=== PATIENT | male | born 1970 | race Caucasian/White ===

== ENCOUNTER 2016-06-10 05:41 | Inpatient (IN) | payer SELFPAY ==
[~2016-06-10] VITALS: Ht 160 cm; Wt 70.4 kg
[2016-06-10] MEDS ORDERED: DIAZEPAM 5 MG/ML 2 ML SYRINGE IVP ONE ×2 (06:15→07:30)
[2016-06-10 06:21] LABS: BASOPHILS # (AUTO) 0.06 K/uL (0.00-0.20); BASOPHILS % (AUTO) 0.5 % (0.0-2.0); EOSINOPHILS # (AUTO) 0.03 K/uL (0.00-0.70); EOSINOPHILS % (AUTO) 0.23 % (1.0-6.0); HEMATOCRIT 48.3 % (41-53); HEMOGLOBIN 16.4 g/dL (13.5-17.5); LYMPHOCYTES # (AUTO) 2.2 K/uL (1.0-4.8); LYMPHOCYTES % (AUTO) 19.9 % (22.0-44.0); MEAN CORPUSCULAR HEMOGLOBIN 33.2 pg (26.0-34.0); MEAN CORPUSCULAR VOLUME 98 fL (80-100); MONOCYTES # (AUTO) 0.7 K/uL (0.1-1.0); MONOCYTES % (AUTO) 6.4 % (2.0-9.0); NEUTROPHILS # (AUTO) 7.9 K/uL (1.8-7.7); NEUTROPHILS % (AUTO) 72.9 % (40.0-70.0); PLATELET COUNT (AUTO) 287 K/uL (150-450); RED BLOOD CELL COUNT(AUTO) 4.95 MIL/uL (4.50-5.90); RED CELL DISTRIBUTION WIDTH 12.1 % (11.5-14.5); WHITE BLOOD COUNT (AUTO) 10.9 K/uL (4.5-11.0)
[2016-06-10 06:31] LABS: ANION GAP 13 mmol/L (8-16); CARBON DIOXIDE 28 mmol/L (22-29); CHLORIDE 99 mmol/L (98-107); CREATININE 1.01 mg/dL (0.60-1.30); GLOMERULAR FILTR. RATE CALC > 60 mL/min (>60); POTASSIUM 3.7 mmol/L (3.5-5.1); SODIUM SERUM 140 mmol/L (136-145); UREA NITROGEN, BLOOD 6 mg/dL (7-18)
[2016-06-10 06:37] LABS: ALANINE AMINOTRANSFERASE 66 U/L (12-78); ALBUMIN 3.8 g/dL (3.4-5.0); ASPARTATE AMINOTRANSFERASE 86 U/L (15-37); BILIRUBIN,TOTAL 0.9 mg/dL (0.1-1.0); TOTAL PROTEIN, SERUM 7.9 g/dL (6.4-8.2)
[2016-06-10] MEDS ORDERED: SODIUM CHLORIDE 0.9% 1,000 ML IV ONE (07:30)
[2016-06-10] MEDS ORDERED: ACETAMINOPHEN 325 MG TABLET PO PRN ×2 (08:15→11:00)
[2016-06-10] MEDS ORDERED: ONDANSETRON HCL 4 MG/2 ML VIAL IVP PRN (08:15)
[2016-06-10] MEDS ORDERED: DIAZEPAM 5 MG/ML 2 ML SYRINGE IVP PRN (08:15)
[2016-06-10 10:17] VITALS: BP 187/113
[2016-06-10] MEDS ORDERED: LORazepam 2 MG/ML VIAL IVP PRN (11:00)
[2016-06-10] MEDS ORDERED: POTASSIUM CHL 10 MEQ/WATER 50 ML IV PRN (11:00)
[2016-06-10] MEDS ORDERED: MAGNESIUM SULFATE 4 GM/WATER 100 ML IV PRN (11:00)
[2016-06-10] MEDS ORDERED: POTASSIUM CHLORIDE 20 MEQ ER TABLET PO PRN (11:00)
[2016-06-10] MEDS ORDERED: MAGNESIUM HYDROXIDE SUSPENSION 30 ML UDCUP PO PRN (11:00)
[2016-06-10] MEDS ORDERED: MAGNESIUM OXIDE 400 MG TABLET PO PRN (11:00)
[2016-06-10] MEDS ORDERED: MAGNESIUM SULFATE 2 GM in DEXTROSE 5%-WATER 50 ML IV PRN (11:00)
[2016-06-10] MEDS: SODIUM CHLORIDE 0.9% 1,000 ML IV SCH ×2 (12:30→20:16)
[2016-06-10] MEDS: MULTIVITAMINS WITH MINERALS, THERAPEUTIC TABLET PO SCH (12:30)
[2016-06-10] MEDS: AmLODIPine BESYLATE 5 MG TABLET PO SCH (12:30)
[2016-06-10] MEDS: PANTOPRAZOLE SODIUM 40 MG/VIAL IVP SCH (12:30)
[2016-06-10] MEDS: ChlordiazePOXIDE HCL 25 MG CAPSULE PO SCH ×2 (12:30→20:16)
[2016-06-10] MEDS: CloNIDine HCL 0.1 MG TABLET PO PRN ×2 (14:42→20:16)
[2016-06-10 15:02] VITALS: BP 181/108
[2016-06-10 17:23] VITALS: BP 161/103
[2016-06-10 19:38] VITALS: BP 162/101
[2016-06-10] MEDS: DOCUSATE SODIUM 100 MG CAPSULE PO SCH (20:16)
[2016-06-10 23:28] VITALS: BP 130/85
[2016-06-11 05:04] VITALS: BP 134/87
[2016-06-11] MEDS: SODIUM CHLORIDE 0.9% 1,000 ML IV SCH ×2 (06:01→15:49)
[2016-06-11] MEDS ORDERED: 0.9% SODIUM CHLORIDE 10 ML SYRINGE IVP PRN (06:45)
[2016-06-11 07:35] VITALS: BP 145/93
[2016-06-11] MEDS: PANTOPRAZOLE SODIUM 40 MG/VIAL IVP SCH (08:16)
[2016-06-11] MEDS: ChlordiazePOXIDE HCL 25 MG CAPSULE PO SCH (08:16)
[2016-06-11] MEDS: MULTIVITAMINS WITH MINERALS, THERAPEUTIC TABLET PO SCH (08:16)
[2016-06-11] MEDS: AmLODIPine BESYLATE 5 MG TABLET PO SCH (08:17)
[2016-06-11] MEDS: DOCUSATE SODIUM 100 MG CAPSULE PO SCH (08:22)
[2016-06-11 11:40] VITALS: BP 158/94
[2016-06-11 15:47] VITALS: BP 166/99
[2016-06-11] MEDS: CloNIDine HCL 0.1 MG TABLET PO PRN (16:48)
[2016-06-11] MEDS ORDERED: CLON.1 PO (17:21)
[2016-06-11] MEDS ORDERED: THIA100 PO (17:22)
[2016-06-11] MEDS ORDERED: FOLI1 PO (17:22)
[2016-06-11] MEDS ORDERED: LIB25 PO (17:28)
[2016-06-11] MEDS ORDERED: MULT-1203 PO (17:29)
== END 2016-06-11 19:05 | disposition home or self-care (01) | DRG 897 ==
LOC: EMS 05:44 → 5S 09:32
PROVIDERS: ADMIT Internal Medicine; ATTEND Internal Medicine
DX: F10.239 Alcohol dependence with withdrawal, unspecified (principal); R00.0 Tachycardia, unspecified; Y90.9 Presence of alcohol in blood, level not specified
CPT/HCPCS: 83735; 96374; 96375; 99285; C9113; J7030

== ENCOUNTER 2016-08-09 20:17 | Emergency (ER) | payer MEDICAID ==
[~2016-08-09] VITALS: Ht 154.9 cm; Wt 68.2 kg
[~2016-08-09 20:17] MED LIST: CLON.1 PO; FOLI1 PO; LIB25 PO; MULT-1203 PO; THIA100 PO
[2016-08-09 21:13] VITALS: BP 152/97
[2016-08-09] MEDS ORDERED: CloNIDine HCL 0.1 MG TABLET PO ONE (21:15)
== END 2016-08-09 21:35 | disposition home or self-care (01) ==
LOC: EMS 20:18
DX: I10 Essential (primary) hypertension (principal); F10.10 Alcohol abuse, uncomplicated; Z91.14 Patient's other noncompliance with medication regimen
CPT/HCPCS: 99283

== ENCOUNTER 2016-09-10 20:07 | Emergency (ER) | payer MEDICAID ==
[~2016-09-10] VITALS: Ht 160 cm; Wt 68.0 kg
[2016-09-10] MEDS ORDERED: SODIUM CHLORIDE 0.9% 1,000 ML IV ONE ×2 (20:45→21:30)
[2016-09-10] MEDS ORDERED: CloNIDine HCL 0.2 MG TABLET PO ONE (21:15)
[2016-09-10 21:26] LABS: BASOPHILS % (AUTO) 0.2 % (0.0-2.0); EOSINOPHILS % (AUTO) 0.2 % (1.0-6.0); HEMATOCRIT 45.7 % (41-53); HEMOGLOBIN 15.9 g/dL (13.5-17.5); LYMPHOCYTES # (AUTO) 2.6 K/uL (1.0-4.8); LYMPHOCYTES % (AUTO) 24.7 % (22.0-44.0); MEAN CORPUSCULAR HEMOGLOBIN 32.2 pg (26.0-34.0); MEAN CORPUSCULAR HGB CONC 34.9 G/dL (31.0-37.0); MEAN CORPUSCULAR VOLUME 92 fL (80-100); MONOCYTES # (AUTO) 0.6 K/uL (0.1-1.0); MONOCYTES % (AUTO) 5.9 % (2.0-9.0); NEUTROPHILS # (AUTO) 7.3 K/uL (1.8-7.7); PLATELET COUNT (AUTO) 316 K/uL (150-450); RED BLOOD CELL COUNT(AUTO) 4.96 MIL/uL (4.50-5.90); WHITE BLOOD COUNT (AUTO) 10.5 K/uL (4.5-11.0)
[2016-09-10 21:35] LABS: ANION GAP 13 mmol/L (8-16); CALCIUM, TOTAL 9.8 mg/dL (8.8-10.5); CARBON DIOXIDE 26 mmol/L (22-29); CHLORIDE 100 mmol/L (98-107); GLOMERULAR FILTR. RATE CALC > 60 mL/min (>60); SODIUM SERUM 139 mmol/L (136-145); UREA NITROGEN, BLOOD 6 mg/dL (7-18)
[2016-09-10 21:41] LABS: ALANINE AMINOTRANSFERASE 26 U/L (12-78); ALBUMIN 4.5 g/dL (3.4-5.0); ASPARTATE AMINOTRANSFERASE 22 U/L (15-37); BILIRUBIN,TOTAL 0.6 mg/dL (0.1-1.0); TOTAL PROTEIN, SERUM 8.4 g/dL (6.4-8.2)
[2016-09-10] MEDS ORDERED: POTASSIUM CHLORIDE 20 MEQ ER TABLET PO ONE (21:45)
[2016-09-10 22:38] LABS: APPEARANCE,URINE CLEAR (CLEAR); GLUCOSE, URINE (UA) NEGATIVE (NEGATIVE); KETONES,URINE NEGATIVE (NEGATIVE); LEUKOCYTE ESTERASE ,URINE NEGATIVE (NEGATIVE); OCCULT BLOOD,URINE NEGATIVE (NEGATIVE); PROTEIN,URINE NEGATIVE (NEGATIVE)
[2016-09-10 22:47] LABS: RBC,URINE None Seen /HPF (0-2); WBC,URINE None Seen /HPF (0-5)
[2016-09-10 23:29] VITALS: BP 181/83
== END 2016-09-10 23:35 | disposition home or self-care (01) ==
LOC: EMS 20:09
DX: M25.512 Pain in left shoulder (principal); E86.0 Dehydration; I10 Essential (primary) hypertension; R07.9 Chest pain, unspecified
CPT/HCPCS: 36415; 71010; 73030; 80053; 80307; 81001; 83690; 84484; 85025; 85379; 93005; 96360; 99285; G0480; J7030; 96361

== ENCOUNTER 2016-10-24 09:53 | Emergency (ER) | payer MEDICAID ==
[~2016-10-24] VITALS: Ht 160 cm; Wt 72.7 kg
[~2016-10-24 09:53] MED LIST changes: +CLON-570 PO; -CLON.1 PO; -FOLI1 PO; -LIB25 PO; -MULT-1203 PO; -THIA100 PO
[2016-10-24] MEDS ORDERED: CloNIDine HCL 0.1 MG TABLET PO ONE (12:15)
[2016-10-24 13:37] VITALS: BP 144/90
== END 2016-10-24 13:57 | disposition home or self-care (01) ==
LOC: EMS 09:55
DX: Z76.0 Encounter for issue of repeat prescription (principal); I10 Essential (primary) hypertension
CPT/HCPCS: 93005; 99283

== ENCOUNTER 2022-07-13 13:48 | Inpatient (IN) | payer MEDICAID ==
[~2022-07-13] VITALS: Ht 167.6 cm; Wt 61.0 kg
[~2022-07-13 13:48] MED LIST changes: +AMLO10TA55 PO; -CLON-570 PO; +CLON0.1T2 PO; +METO25 PO
[2022-07-13] MEDS ORDERED: SODIUM CHLORIDE 0.9% 1,000 ML IV ONE (14:15)
[2022-07-13] MEDS ORDERED: METOCLOPRAMIDE HCL 5 MG/ML 2 ML VIAL IVP ONE (14:15)
[2022-07-13 14:33] LABS: EOSINOPHILS % (AUTO) 0 % (1.0-6.0); HEMATOCRIT 44.8 % (41-53); HEMOGLOBIN 15.6 g/dL (13.5-17.5); LYMPHOCYTES # (AUTO) 0.4 K/uL (1.0-4.8); LYMPHOCYTES % (AUTO) 1.5 % (22.0-44.0); MEAN CORPUSCULAR HEMOGLOBIN 34.5 pg (26.0-34.0); MEAN CORPUSCULAR HGB CONC 34.8 G/dL (31.0-37.0); MEAN CORPUSCULAR VOLUME 99 fL (80-100); MONOCYTES # (AUTO) 1.1 K/uL (0.1-1.0); PLATELET COUNT (AUTO) 278 K/uL (150-450); RED BLOOD CELL COUNT(AUTO) 4.52 MIL/uL (4.50-5.90); RED CELL DISTRIBUTION WIDTH 12.5 % (11.5-14.5)
[2022-07-13 14:35] LABS: APPEARANCE,URINE CLEAR (CLEAR); BILIRUBIN,URINE NEGATIVE (NEGATIVE); GLUCOSE, URINE (UA) NEGATIVE (NEGATIVE); KETONES,URINE 40-60 mg/dL (NEGATIVE); LEUKOCYTE ESTERASE ,URINE NEGATIVE (NEGATIVE); NITRATE,URINE NEGATIVE (NEGATIVE); OCCULT BLOOD,URINE LARGE (NEGATIVE); PH,URINE 5.5 (5.0-8.0); PROTEIN,URINE 30-70 mg/dL (NEGATIVE); SPECIFIC GRAVITIY, URINE 1.015 (1.003-1.030); UROBILINOGEN,URINE <=1.0 mg/dL (<=1.0)
[2022-07-13 14:37] LABS: NEUTROPHILS % (AUTO) 94.5 % (40.0-70.0)
[2022-07-13 14:41] LABS: GLUCOSE,POINT OF CARE 114 MG/DL (70-110)
[2022-07-13 14:43] LABS: AMPHET/METH SCREEN,URINE NEGATIVE (NEGATIVE); BACTERIA,URINE Rare /HPF (None Seen); BARBITURATE SCREEN, URINE NEGATIVE (NEGATIVE); BENZODIAZEPINES SCREEN,URINE NEGATIVE (NEGATIVE); CANNABINOID SCREEN,URINE NEGATIVE (NEGATIVE); COCAINE SCREEN,URINE POSITIVE (NEGATIVE); METHADONE SCREEN, URINE NEGATIVE (NEGATIVE); OPIATE SCREEN,URINE NEGATIVE (NEGATIVE); PHENCYCLIDINE SCREEN,URINE NEGATIVE (NEGATIVE); SQUAMOUS EPITHELIAL CELL,UR Few /LPF (None Seen); WBC,URINE 0-2 /HPF (0-5)
[2022-07-13 14:44] LABS: CALCIUM, TOTAL 9.2 mg/dL (8.8-10.5); CREATININE 1.36 mg/dL (0.60-1.30); POTASSIUM 3.2 mmol/L (3.5-5.1)
[2022-07-13 14:50] LABS: ALBUMIN 4.3 g/dL (3.4-5.0); BILIRUBIN,TOTAL 1.3 mg/dL (0.1-1.0); TOTAL PROTEIN, SERUM 8.5 g/dL (6.4-8.2)
[2022-07-13 15:18] LABS: INR 0.9 (0.9-1.1); PROTHROMBIN TIME 9.8 SEC (9.4-11.6)
[2022-07-13 15:27] LABS: LACTIC ACID 2.5 mmol/L (0.4-2.0)
[2022-07-13] MEDS ORDERED: SODIUM CHLORIDE 0.9% 2,050 ML IV ONE (15:45)
[2022-07-13] MEDS ORDERED: PIPERACILLIN/TAZO 3.375 GM/D5W 50 ML IV ONE (15:45)
[2022-07-13 16:08] LABS: AMMONIA < 10 umol/L (11-32)
[2022-07-13 16:37] LABS: PROTHROMBIN TIME 10.2 SEC (9.4-11.6)
[2022-07-13] MEDS ORDERED: HYDROCODONE/ACETAMINOPHEN 5-325 MG TABLET PO PRN (20:15)
[2022-07-13] MEDS ORDERED: ONDANSETRON HCL 4 MG/2 ML VIAL IVP PRN (20:15)
[2022-07-13] MEDS ORDERED: ACETAMINOPHEN 325 MG TABLET PO PRN (20:15)
[2022-07-13] MEDS ORDERED: MAGNESIUM HYDROXIDE SUSPENSION 30 ML UDCUP PO PRN (20:15)
[2022-07-13] MEDS ORDERED: ZOLPIDEM TARTRATE 5 MG TABLET PO PRN (20:15)
[2022-07-13] MEDS ORDERED: MAGNESIUM SULFATE 2 GM, MVI, ADULT NO.1 WITH VIT K 10 ML, THIAMINE 100 MG, FOLIC ACID 1... IV ONE ×5 (20:15)
[2022-07-13] MEDS ORDERED: BISACODYL 10 MG RECTAL RECTAL SUPPOSITORY PR PRN (20:15)
[2022-07-13] MEDS ORDERED: MORPHINE SULFATE 2 MG/ML SYRINGE IVP PRN (20:15)
[2022-07-13 21:00] VITALS: BP 157/101
[2022-07-13] MEDS ORDERED: SODIUM CHLORIDE 0.9% 250 ML IV ONE (21:40)
[2022-07-13] MEDS: DOCUSATE SODIUM 100 MG CAPSULE PO SCH (21:41)
[2022-07-13] MEDS: PIPERACILLIN/TAZO 3.375 GM/D5W 50 ML IV SCH (21:42)
[2022-07-13] MEDS: HydrALAZINE HCL 20 MG/ML VIAL IVP PRN (21:44)
[2022-07-14] VITALS (7 sets, daily range): BP systolic 129–160; BP diastolic 35–97
[2022-07-14] MEDS: LORazepam 2 MG/ML VIAL IM PRN (02:46)
[2022-07-14] MEDS: PIPERACILLIN/TAZO 3.375 GM/D5W 50 ML IV SCH ×4 (04:01→21:14)
[2022-07-14 05:37] LABS: BASOPHILS % (AUTO) 0.2 % (0.0-2.0); EOSINOPHILS % (AUTO) 0 % (1.0-6.0); HEMATOCRIT 39.3 % (41-53); HEMOGLOBIN 13.6 g/dL (13.5-17.5); LYMPHOCYTES # (AUTO) 0.9 K/uL (1.0-4.8); LYMPHOCYTES % (AUTO) 5.5 % (22.0-44.0); MEAN CORPUSCULAR HEMOGLOBIN 34.4 pg (26.0-34.0); MEAN CORPUSCULAR HGB CONC 34.7 G/dL (31.0-37.0); MEAN CORPUSCULAR VOLUME 99 fL (80-100); MONOCYTES # (AUTO) 0.9 K/uL (0.1-1.0); MONOCYTES % (AUTO) 5.5 % (2.0-9.0); NEUTROPHILS # (AUTO) 14.7 K/uL (1.8-7.7); PLATELET COUNT (AUTO) 239 K/uL (150-450); RED BLOOD CELL COUNT(AUTO) 3.96 MIL/uL (4.50-5.90); RED CELL DISTRIBUTION WIDTH 12.5 % (11.5-14.5)
[2022-07-14 05:44] LABS: ANION GAP 11 mmol/L (8-16); CALCIUM, TOTAL 8.5 mg/dL (8.8-10.5); CARBON DIOXIDE 27 mmol/L (22-29); CHLORIDE 101 mmol/L (98-107); CREATININE 0.81 mg/dL (0.60-1.30); GLOMERULAR FILTR. RATE CALC > 60 mL/min (>60); GLUCOSE,RANDOM 107 mg/dL (70-110); SODIUM SERUM 139 mmol/L (136-145)
[2022-07-14 05:49] LABS: NEUTROPHILS % (AUTO) 88.8 % (40.0-70.0)
[2022-07-14 05:51] LABS: POTASSIUM 2.8 mmol/L (3.5-5.1)
[2022-07-14] MEDS: POTASSIUM CHL 10 MEQ/WATER 50 ML IV PRN ×4 (06:36→10:55)
[2022-07-14] MEDS: HydrALAZINE HCL 20 MG/ML VIAL IVP PRN (07:48)
[2022-07-14] MEDS: PANTOPRAZOLE SODIUM 40 MG DR TABLET PO SCH (10:02)
[2022-07-14] MEDS: DOCUSATE SODIUM 100 MG CAPSULE PO SCH ×2 (10:02→20:15)
[2022-07-14] MEDS: AmLODIPine BESYLATE 10 MG TABLET PO SCH (13:48)
[2022-07-14] MEDS: POTASSIUM CHLORIDE 20 MEQ ER TABLET PO PRN ×2 (15:57→20:44)
[2022-07-14] MEDS: METOPROLOL TARTRATE 25 MG TABLET PO SCH (20:16)
[2022-07-14] MEDS ORDERED: SODIUM CHLORIDE 0.9% 500 ML IV ONE (20:57)
[2022-07-15] VITALS (7 sets, daily range): BP systolic 114–160; BP diastolic 89–109
[2022-07-15] MEDS: PIPERACILLIN/TAZO 3.375 GM/D5W 50 ML IV SCH ×4 (03:27→21:35)
[2022-07-15 07:31] LABS: BASOPHILS % (AUTO) 0.3 % (0.0-2.0); EOSINOPHILS % (AUTO) 0 % (1.0-6.0); HEMOGLOBIN 14.3 g/dL (13.5-17.5); LYMPHOCYTES # (AUTO) 1.4 K/uL (1.0-4.8); LYMPHOCYTES % (AUTO) 13.6 % (22.0-44.0); MEAN CORPUSCULAR HEMOGLOBIN 34.8 pg (26.0-34.0); MEAN CORPUSCULAR VOLUME 100 fL (80-100); MONOCYTES # (AUTO) 0.6 K/uL (0.1-1.0); MONOCYTES % (AUTO) 6.2 % (2.0-9.0); NEUTROPHILS # (AUTO) 8.3 K/uL (1.8-7.7); NEUTROPHILS % (AUTO) 79.9 % (40.0-70.0); PLATELET COUNT (AUTO) 270 K/uL (150-450); RED BLOOD CELL COUNT(AUTO) 4.12 MIL/uL (4.50-5.90); RED CELL DISTRIBUTION WIDTH 12.5 % (11.5-14.5)
[2022-07-15 07:48] LABS: ANION GAP 9 mmol/L (8-16); CALCIUM, TOTAL 8.9 mg/dL (8.8-10.5); CARBON DIOXIDE 27 mmol/L (22-29); CHLORIDE 101 mmol/L (98-107); CREATININE 0.76 mg/dL (0.60-1.30); GLOMERULAR FILTR. RATE CALC > 60 mL/min (>60); GLUCOSE,RANDOM 125 mg/dL (70-110); POTASSIUM 3.5 mmol/L (3.5-5.1); SODIUM SERUM 137 mmol/L (136-145)
[2022-07-15] MEDS: METOPROLOL TARTRATE 25 MG TABLET PO SCH ×2 (08:16→21:34)
[2022-07-15] MEDS: DOCUSATE SODIUM 100 MG CAPSULE PO SCH ×2 (08:16→21:33)
[2022-07-15] MEDS: PANTOPRAZOLE SODIUM 40 MG DR TABLET PO SCH (08:16)
[2022-07-15] MEDS: AmLODIPine BESYLATE 10 MG TABLET PO SCH (08:16)
[2022-07-15] MEDS: POTASSIUM CHLORIDE 20 MEQ ER TABLET PO PRN ×2 (08:17→13:56)
[2022-07-15] MEDS ORDERED: AmLODIPine BESYLATE 10 MG TABLET PO SCH (09:00)
[2022-07-15] MEDS: MULTIVITAMINS WITH MINERALS, THERAPEUTIC TABLET PO SCH (11:05)
[2022-07-16] VITALS (7 sets, daily range): BP systolic 121–149; BP diastolic 80–108
[2022-07-16] MEDS: LORazepam 2 MG/ML VIAL IM PRN (03:48)
[2022-07-16] MEDS: PIPERACILLIN/TAZO 3.375 GM/D5W 50 ML IV SCH ×4 (03:52→21:31)
[2022-07-16] MEDS ORDERED: HALOPERIDOL LACTATE 5 MG/ML VIAL IM SCH (04:15)
[2022-07-16] MEDS ORDERED: DiphenhydrAMINE HCL 50 MG/ML VIAL IM ONE (04:15)
[2022-07-16] MEDS ORDERED: LORazepam 2 MG/ML VIAL IM ONE (04:15)
[2022-07-16] MEDS ORDERED: HALOPERIDOL LACTATE 5 MG/ML VIAL IM ONE (04:30)
[2022-07-16] MEDS: METOPROLOL TARTRATE 25 MG TABLET PO SCH ×2 (10:20→20:58)
[2022-07-16] MEDS: AmLODIPine BESYLATE 10 MG TABLET PO SCH (10:20)
[2022-07-16] MEDS: MULTIVITAMINS WITH MINERALS, THERAPEUTIC TABLET PO SCH (10:20)
[2022-07-16] MEDS: PANTOPRAZOLE SODIUM 40 MG DR TABLET PO SCH (10:20)
[2022-07-16] MEDS: DOCUSATE SODIUM 100 MG CAPSULE PO SCH ×2 (10:20→20:58)
[2022-07-16] MEDS ORDERED: LORazepam 2 MG/ML VIAL IVP PRN (10:30)
[2022-07-16] MEDS: SODIUM CHLORIDE 0.9% 1,000 ML IV SCH ×2 (11:40→21:32)
[2022-07-16 11:50] LABS: MAGNESIUM 2.2 mg/dL (1.80-2.40)
[2022-07-16 13:50] LABS: BASOPHILS % (AUTO) 0.4 % (0.0-2.0); EOSINOPHILS % (AUTO) 0.2 % (1.0-6.0); HEMATOCRIT 39.4 % (41-53); HEMOGLOBIN 13.7 g/dL (13.5-17.5); LYMPHOCYTES # (AUTO) 1.1 K/uL (1.0-4.8); MEAN CORPUSCULAR HEMOGLOBIN 34.7 pg (26.0-34.0); MEAN CORPUSCULAR HGB CONC 34.6 G/dL (31.0-37.0); MEAN CORPUSCULAR VOLUME 100 fL (80-100); MONOCYTES # (AUTO) 0.7 K/uL (0.1-1.0); MONOCYTES % (AUTO) 9.8 % (2.0-9.0); NEUTROPHILS # (AUTO) 5.6 K/uL (1.8-7.7); NEUTROPHILS % (AUTO) 74.6 % (40.0-70.0); PLATELET COUNT (AUTO) 282 K/uL (150-450); RED BLOOD CELL COUNT(AUTO) 3.94 MIL/uL (4.50-5.90); RED CELL DISTRIBUTION WIDTH 12.6 % (11.5-14.5)
[2022-07-16 14:06] LABS: ANION GAP 8 mmol/L (8-16); CALCIUM, TOTAL 9.1 mg/dL (8.8-10.5); CARBON DIOXIDE 28 mmol/L (22-29); CHLORIDE 101 mmol/L (98-107); CREATININE 0.87 mg/dL (0.60-1.30); GLOMERULAR FILTR. RATE CALC > 60 mL/min (>60); GLUCOSE,RANDOM 77 mg/dL (70-110); POTASSIUM 3.9 mmol/L (3.5-5.1); SODIUM SERUM 137 mmol/L (136-145)
[2022-07-17 01:09] VITALS: BP 143/95
[2022-07-17] MEDS: PIPERACILLIN/TAZO 3.375 GM/D5W 50 ML IV SCH ×4 (05:44→21:07)
[2022-07-17 05:48] VITALS: BP 145/93
[2022-07-17 07:14] LABS: ANION GAP 6 mmol/L (8-16); CALCIUM, TOTAL 8.8 mg/dL (8.8-10.5); CARBON DIOXIDE 27 mmol/L (22-29); CHLORIDE 103 mmol/L (98-107); GLOMERULAR FILTR. RATE CALC > 60 mL/min (>60); GLUCOSE,RANDOM 98 mg/dL (70-110); POTASSIUM 4.3 mmol/L (3.5-5.1); SODIUM SERUM 136 mmol/L (136-145)
[2022-07-17 08:44] VITALS: BP 156/98
[2022-07-17] MEDS: SODIUM CHLORIDE 0.9% 1,000 ML IV SCH (09:24)
[2022-07-17] MEDS: DOCUSATE SODIUM 100 MG CAPSULE PO SCH ×2 (09:25→21:06)
[2022-07-17] MEDS: MULTIVITAMINS WITH MINERALS, THERAPEUTIC TABLET PO SCH (09:27)
[2022-07-17] MEDS: METOPROLOL TARTRATE 25 MG TABLET PO SCH ×2 (09:27→21:06)
[2022-07-17] MEDS: AmLODIPine BESYLATE 10 MG TABLET PO SCH (09:27)
[2022-07-17] MEDS: PANTOPRAZOLE SODIUM 40 MG DR TABLET PO SCH (09:27)
[2022-07-17 11:40] VITALS: BP 120/73
[2022-07-17 15:33] VITALS: BP 139/75
[2022-07-17 19:58] VITALS: BP 146/85
[2022-07-18 00:04] VITALS: BP 150/71
[2022-07-18 04:27] VITALS: BP 137/79
[2022-07-18] MEDS: PIPERACILLIN/TAZO 3.375 GM/D5W 50 ML IV SCH (05:28)
[2022-07-18 08:11] VITALS: BP 155/90
[2022-07-18] MEDS: METOPROLOL TARTRATE 25 MG TABLET PO SCH (09:03)
[2022-07-18] MEDS: DOCUSATE SODIUM 100 MG CAPSULE PO SCH (09:04)
[2022-07-18] MEDS: PANTOPRAZOLE SODIUM 40 MG DR TABLET PO SCH (09:04)
[2022-07-18] MEDS: AmLODIPine BESYLATE 10 MG TABLET PO SCH (09:04)
[2022-07-18] MEDS: MULTIVITAMINS WITH MINERALS, THERAPEUTIC TABLET PO SCH (09:05)
[2022-07-18] MEDS: SODIUM CHLORIDE 0.9% 1,000 ML IV SCH ×2 (09:08→09:09)
== END 2022-07-18 10:40 | disposition left against medical advice (07) | DRG 720 ==
LOC: EMS 13:52 → ICU 18:57 → 5S 07-14 18:36
PROVIDERS: ADMIT Internal Medicine; ATTEND Internal Medicine
DX: A41.9 Sepsis, unspecified organism (principal); I61.8 Other nontraumatic intracerebral hemorrhage; J69.0 Pneumonitis due to inhalation of food and vomit; G92.9 Unspecified toxic encephalopathy; N17.9 Acute kidney failure, unspecified; E87.1 Hypo-osmolality and hyponatremia; E87.6 Hypokalemia; S00.83XA Contusion of other part of head, initial encounter; F10.20 Alcohol dependence, uncomplicated; I10 Essential (primary) hypertension; Z53.21 Procedure and treatment not carried out due to patient leaving prior to being seen by health care provider; M62.82 Rhabdomyolysis; F14.10 Cocaine abuse, uncomplicated; R79.89 Other specified abnormal findings of blood chemistry; X58.XXXA Exposure to other specified factors, initial encounter; Y93.9 Activity, unspecified; Z79.899 Other long term (current) drug therapy; Y92.89 Other specified places as the place of occurrence of the external cause; Y99.8 Other external cause status
CPT/HCPCS: 51702; 70450; 71045; 80048; 80053; 80307; 81001; 82140; 82550; 82962; 83605; 83690; 83735; 84132; 84145; 84484; 85025; 85610; 85730; 87040; 87081; 92507; 92523; 92526; 92610; 93005; 99291; G0378; G0480; J0360; J1200; J1630; J2060; J2543; J2765; J3411; J3475; J3480; J3490; J7030; J7040; J7050; 36415-L1; 36415-TC

== ENCOUNTER 2024-11-22 19:34 | Emergency (ER) | payer OTHER ==
[~2024-11-22] VITALS: Ht 154.9 cm; Wt 63.6 kg
[~2024-11-22 19:34] MED LIST changes: +ACET-2247 PO; +AMLO-258 PO; -AMLO10TA55 PO; +ASPI-1450 PO; +ATOR40TA28 PO; -CLON0.1T2 PO; +CLOP75TA83 PO; +FAMO20 PO; +FOLI-130 PO; +LOSA-381 PO; -METO25 PO; +MULT-14 PO; +THIA100T80 PO
[2024-11-22 20:22] LABS: PLATELET COUNT (AUTO) 328 K/uL (150-450); RED BLOOD CELL COUNT(AUTO) 4.35 MIL/uL (4.50-5.90); RED CELL DISTRIBUTION WIDTH 13.1 % (11.5-14.5); WHITE BLOOD COUNT (AUTO) 6.5 K/uL (4.5-11.0)
[2024-11-22 20:31] LABS: CALCIUM, TOTAL 9.0 mg/dL (8.8-10.5); CREATININE 0.88 mg/dL (0.60-1.30); GLOMERULAR FILTR. RATE CALC > 60 mL/min (>60); GLUCOSE,RANDOM 109 mg/dL (70-110); SODIUM SERUM 141 mmol/L (136-145); UREA NITROGEN, BLOOD 15 mg/dL (7-18)
[2024-11-22 20:36] LABS: ASPARTATE AMINOTRANSFERASE 17.0 U/L (15-37); TOTAL PROTEIN, SERUM 7.4 g/dL (6.4-8.2)
[2024-11-22 20:38] LABS: LACTIC ACID 1.1 mmol/L (0.4-2.0); TROPONIN I-HIGH SENSITIVITY 11 ng/L (<76)
[2024-11-22 21:47] VITALS: TEMP 98.2
[2024-11-22 22:17] LABS: APPEARANCE,URINE CLEAR (CLEAR); GLUCOSE, URINE (UA) NEGATIVE (NEGATIVE); LEUKOCYTE ESTERASE ,URINE NEGATIVE (NEGATIVE); NITRATE,URINE NEGATIVE (NEGATIVE); OCCULT BLOOD,URINE NEGATIVE (NEGATIVE); PH,URINE DRUG SCREEN 6.5 (5.0-8.0); SPECIFIC GRAVITIY, URINE 1.021 (1.003-1.030)
[2024-11-22 22:23] LABS: AMPHET/METH SCREEN,URINE NEGATIVE (NEGATIVE); BARBITURATE SCREEN, URINE NEGATIVE (NEGATIVE); CANNABINOID SCREEN,URINE NEGATIVE (NEGATIVE); COCAINE SCREEN,URINE NEGATIVE (NEGATIVE); METHADONE SCREEN, URINE NEGATIVE (NEGATIVE)
[2024-11-22 22:25] LABS: ALCOHOL, URINE DRUG SCREEN NEGATIVE (NEGATIVE)
[2024-11-22 23:41] VITALS: BP 148/102; PULSE 76; RESP 16; O2SAT 98
[2024-11-22] MEDS ORDERED: CLOP75TA83 PO (23:46)
[2024-11-22] MEDS ORDERED: AMLO-258 PO (23:46)
[2024-11-22] MEDS ORDERED: LOSA-381 PO (23:46)
== END 2024-11-23 00:52 | disposition home or self-care (01) ==
LOC: EMS 19:35
DX: R51.9 Headache, unspecified (principal); H92.02 Otalgia, left ear; I10 Essential (primary) hypertension; F10.20 Alcohol dependence, uncomplicated; I69.30 Unspecified sequelae of cerebral infarction; Z79.02 Long term (current) use of antithrombotics/antiplatelets; Z79.82 Long term (current) use of aspirin; Z79.899 Other long term (current) drug therapy; Y90.9 Presence of alcohol in blood, level not specified
CPT/HCPCS: 70450; 80048; 80076; 80307; 81003; 83605; 84484; 85025; 85610; 93005; 99285

== ENCOUNTER 2024-12-24 08:27 | Emergency (ER) | payer OTHER ==
[~2024-12-24] VITALS: Ht 157.5 cm; Wt 59.1 kg
[2024-12-24 08:28] VITALS: TEMP 98.1
[2024-12-24 08:58] LABS: PLATELET COUNT (AUTO) 272 K/uL (150-450); RED BLOOD CELL COUNT(AUTO) 4.71 MIL/uL (4.50-5.90); RED CELL DISTRIBUTION WIDTH 12.9 % (11.5-14.5); WHITE BLOOD COUNT (AUTO) 5.0 K/uL (4.5-11.0)
[2024-12-24 09:02] LABS: CALCIUM, TOTAL 8.9 mg/dL (8.8-10.5); CREATININE 1.06 mg/dL (0.60-1.30); GLOMERULAR FILTR. RATE CALC > 60 mL/min (>60); GLUCOSE,RANDOM 97 mg/dL (70-110); SODIUM SERUM 139 mmol/L (136-145); UREA NITROGEN, BLOOD 17 mg/dL (7-18)
[2024-12-24 09:12] LABS: TROPONIN I-HIGH SENSITIVITY 9 ng/L (<76)
[2024-12-24 09:34] LABS: APPEARANCE,URINE CLEAR (CLEAR); GLUCOSE, URINE (UA) NEGATIVE (NEGATIVE); LEUKOCYTE ESTERASE ,URINE NEGATIVE (NEGATIVE); NITRATE,URINE NEGATIVE (NEGATIVE); OCCULT BLOOD,URINE NEGATIVE (NEGATIVE); SPECIFIC GRAVITIY, URINE 1.030 (1.003-1.030)
[2024-12-24 09:41] LABS: ALCOHOL, URINE DRUG SCREEN NEGATIVE (NEGATIVE); AMPHET/METH SCREEN,URINE NEGATIVE (NEGATIVE); BARBITURATE SCREEN, URINE NEGATIVE (NEGATIVE); CANNABINOID SCREEN,URINE NEGATIVE (NEGATIVE); COCAINE SCREEN,URINE NEGATIVE (NEGATIVE); METHADONE SCREEN, URINE NEGATIVE (NEGATIVE)
[2024-12-24 09:55] LABS: PH,URINE DRUG SCREEN 6.0 (5.0-8.0)
[2024-12-24] MEDS: KETOROLAC TROMETHAMINE 60 MG/2 ML VIAL IM ONE (10:31)
[2024-12-24] MEDS: LOSARTAN POTASSIUM 25 MG TABLET PO ONE (10:31)
[2024-12-24 11:48] VITALS: BP 160/64; PULSE 91; RESP 14; O2SAT 96
== END 2024-12-24 12:37 | disposition home or self-care (01) ==
LOC: EMS 08:27
DX: I10 Essential (primary) hypertension (principal); R51.9 Headache, unspecified; R63.0 Anorexia; R07.89 Other chest pain; F10.20 Alcohol dependence, uncomplicated; Z79.02 Long term (current) use of antithrombotics/antiplatelets; Z86.73 Personal history of transient ischemic attack (TIA), and cerebral infarction without residual deficits; Z79.82 Long term (current) use of aspirin; Z79.899 Other long term (current) drug therapy; Y90.9 Presence of alcohol in blood, level not specified
CPT/HCPCS: 99285; 70450; 71045; 80048; 81003; 83880; 84484; 85025; 85610; 85730; 36415; 93005; 96372; 80307; J1885; G0480